=== PATIENT | female | born 2000 | race African-American/Black ===

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

== ENCOUNTER 2022-05-14 06:34 | Emergency (ER) | payer BC ==
[~2022-05-14] VITALS: Ht 162.6 cm; Wt 59.0 kg
[~2022-05-14 06:34] MED LIST: ALBU8.5H8 INH
[2022-05-14 06:42] VITALS: BP_SYST 120
--- NOTE | 2022-05-14 06:56 | NUR ---
Report received from RACHEL Mcbride; assuming care of patient at this time.
--- NOTE | 2022-05-14 06:56 | NUR ---
PT WALKED IN TO THE ER COMPLAINING OF MENSTRUAL PROBLEMS AND 9/10 ABDOMINAL CRAMP PAIN. HX OF SPINAL FUSION IN 2019 AND DEPRESSION, ANXIETY. AA&OX4. AFEBRILE, NAD. AMBULATORY W/ STEADY GAIT. SAFE & HAZARD FREE ENVIRONMENT. PLACED IN BED 2. GOWN PROVIDED. URINE SPECIMEN COLLECTED. REPORT GIVEN TO RACHEL SCRUGGS.
--- NOTE | 2022-05-14 07:00 | NUR ---
NAKITA Benton at bedside.
[2022-05-14] MEDS ORDERED: NAPROXEN 250 MG TABLET PO ONE (07:15)
--- NOTE | 2022-05-14 07:20 | NUR ---
Report given to RACHEL Yoon who will assume care of patient at this time.
[2022-05-14 07:29] LABS: BILIRUBIN,URINE NEGATIVE (NEGATIVE); BLOOD, URINE 3+ (NEGATIVE); CLARITY/URINE CLEAR (CLEAR); COLOR,URINE YELLOW (YELLOW); GLUCOSE,URINE NEGATIVE (NEGATIVE); KETONES,URINE NEGATIVE (NEGATIVE); LEUKOCYTE ESTERASE ,URINE NEGATIVE (NEGATIVE); NITRITE, URINE NEGATIVE (NEGATIVE); PROTEIN URINE NEGATIVE (NEGATIVE); UROBILINOGEN,URINE 0.2 (0.2-1.0)
[2022-05-14 07:49] LABS: BASOPHILS # (AUTO) 0.1 K/uL (0.0-0.2); BASOPHILS % (AUTO) 1.8 % (0.0-2.0); EOSINOPHILS # (AUTO) 0.6 K/uL (0.0-0.4); EOSINOPHILS % (AUTO) 8.1 % (0.0-4.0); HEMATOCRIT 34.5 % (36-48); HEMOGLOBIN 11.8 g/dL (12.0-16.0); LYMPHOCYTES # (AUTO) 1.9 K/uL (1.0-5.5); LYMPHOCYTES % (AUTO) 25.9 % (20.5-51.5); MEAN CORPUSCULAR HEMOGLOBIN 29 pg (27-31); MEAN CORPUSCULAR HGB CONC 34 % (32-36); MEAN CORPUSCULAR VOLUME 84 fL (79.0-98.0); MONOCYTES # (AUTO) 0.5 K/uL (0.0-1.0); MONOCYTES % (AUTO) 7.5 % (1.7-9.3); NEUTROPHILS # (AUTO) 4.1 K/uL (1.8-7.7); NEUTROPHILS % (AUTO) 56.7 % (40.0-70.0); PLATELET COUNT (AUTO) 252 K/uL (130-430); RED BLOOD CELL COUNT(AUTO) 4.12 MIL/uL (4.2-6.2); RED CELL DISTRIBUTION WIDTH 14.4 % (9.0-15.0); WHITE BLOOD COUNT (AUTO) 7.3 K/uL (4.8-10.8)
--- NOTE | 2022-05-14 07:53 | NUR ---
Received patient in care. Gave pain medication and observing patient at this time.
[2022-05-14 08:10] LABS: CALCIUM 8.6 mg/dL (8.4-11.0); CREATININE 1.15 mg/dL (0.55-1.30); POTASSIUM 3.5 mmol/L (3.5-5.1); PROTHROMBIN TIME 10.9 SECS (9.5-12.5)
[2022-05-14 08:10] LABS: BACTERIA,URINE FEW /HPF (None Seen); MUCUS,URINE 1+ /LPF (None Seen); RBC,URINE 20-50 /HPF (0-3); WBC,URINE 0-3 /HPF (0-3)
[2022-05-14 08:21] LABS: ALBUMIN 3.6 g/dL (3.4-4.8); TOTAL BILIRUBIN 0.5 mg/dL (0.0-1.0)
--- NOTE | 2022-05-14 09:52 | NUR ---
Patient has returned from ultrasound and has visitors at bedside. Awaiting results to be read by MD at this time.
--- NOTE | 2022-05-14 10:32 | NUR ---
PT DENIES ANY PAIN AT THIS TIME, TALKING AND LAUGHING WITH MOTHER.
--- NOTE | 2022-05-14 11:58 | NUR ---
DR LAZARO AT BEDSIDE FOR RE-EVAL
[2022-05-14] MEDS ORDERED: [UNRECOGNIZED DRUG - CODE] PO (12:05)
[2022-05-14 12:11] VITALS: BP_SYST 117
--- NOTE | 2022-05-14 12:11 | NUR ---
Patient given written and verbal discharge instructions and verbalizes understanding. ER MD discussed with patient the results and treatment provided. Patient in stable condition. ID arm band removed. Rx of NONE given. Patient educated on pain management and to follow up with PMD. Pain Scale 0/10. Opportunity for questions provided and answered. Medication side effect fact sheet provided.
== END 2022-05-14 12:11 | disposition home or self-care (01) ==
LOC: SED 06:34
DX: N93.9 Abnormal uterine and vaginal bleeding, unspecified (principal); R11.0 Nausea; J45.909 Unspecified asthma, uncomplicated; Z91.018 Allergy to other foods; Z91.010 Allergy to peanuts; Z79.899 Other long term (current) drug therapy
CPT/HCPCS: 36415; 76856-TC; 80053; 81000; 84702; 85025; 85610-TC; 99284